=== PATIENT | female | born 1970 | race Caucasian/White ===

== ENCOUNTER 2016-08-09 14:46 | Inpatient (IN) | payer OTHER ==
[2016-08-09] VITALS (9 sets, daily range): BP systolic 100–135; BP diastolic 53–62; PULSE 94–99; RESP 12–18; TEMP 98.1–98.2; O2SAT 96–100
[~2016-08-09] VITALS: Ht 160 cm; Wt 54.5 kg
[~2016-08-09 14:46] MED LIST: PROT40TA PO
[2016-08-09 15:31] LABS: BACTERIA, URINE RARE /hpf; BLOOD, URINE NEG (NEG); COMMENT (UR) CULTURE INDICATED; CULTURE IF INDICATED CULTURE INDICATED; GLUCOSE,URINE NEG (NEG); KETONE, URINE NEG (NEG); MUCUS URINE FEW /lpf (OCC); NITRITE,URINE POS (NEG); PH, URINE 5.5 (5.0-8.5); SQUAMOUS EPITHELIAL CELL URINE 8 /hpf (0-5); URINE COLOR YELLOW (YELLW/STRAW)
[2016-08-09 16:34] LABS: APTT (PATIENT) 30.6 SEC (24.3-30.1); INTERNATIONAL NORMALIZED RATIO 1.1 RATIO; PROTHROMBIN TIME - PATIENT 12.7 SEC (9.8-11.6)
[2016-08-09 16:45] LABS: BICARBONATE 20.4 MEQ/L (21.0-32.0); POTASSIUM 3.5 MEQ/L (3.5-5.1); TOTAL BILIRUBIN ADULT 0.7 MG/DL (0.2-1.0)
[2016-08-09 16:49] LABS: CALCIUM-PROTEIN CORRECTED 7.3 MG/DL (8.5-10.1)
[2016-08-09 17:46] LABS: MEAN CELL VOLUME 62.6 FL (80.0-100.0); MEAN CORPUSCULAR HEMOGLOBIN 17.5 PG (27.0-34.0); PLATELET COUNT 58 TH/MM3 (150-450); RED BLOOD COUNT 1.81 MIL/MM3 (4.00-5.30); RED CELL DISTRIBUTION WIDTH 24.5 % (11.6-17.2); WHITE BLOOD COUNT 2.5 TH/MM3 (4.0-11.0)
[2016-08-09 17:47] LABS: HEMO FLAGS AUTO DIFF
[2016-08-09 17:50] LABS: HEMATOCRIT 11.3 % (35.0-46.0)
--- NOTE | 2016-08-09 17:53 | PD ---
HPI Chief Complaint: Edema Time Seen by Provider: 17:33 Travel History International Travel<30 days: No Contact w/Intl Traveler<30days: No Traveled to known affect area: No History of Present Illness HPI 46yo F with PMH of alcohol abuse, cirrhosis presents to the ED with c/o low hemoglobin and bilateral lower extremity swelling for 4-5 days. Pt states she has had this before, hemoglobin has been in the 3s before and had multiple transfusions. She had the same complaint 3-4 times, once every year. Pt drinks daily and last drink was this morning. Denies any fever, cough, chest pain, sob, hematemesis, abdominal pain, black stool or blood in stool. Had endoscopy and colonoscopy 1 year ago that was negative as per patient. Had history of alcohol withdrawal seizure. PFSH Past Medical History Anemia: Yes Arthritis: Yes Anxiety: Yes Depression: Yes Cancer: No Cardiovascular Problems: No Chemotherapy: No Cerebrovascular Accident: Yes Diminished Hearing: No Endocrine: No Gastrointestinal Disorders: Yes Genitourinary: No Immune Disorder: No Implanted Vascular Access Dvce: No Musculoskeletal: No Neurologic: Yes Psychiatric: Yes Reproductive: Yes (PELVIC MASS) Respiratory: No Migraines: No Radiation Therapy: No Seizures: Yes (X4 IN 3 YEARS) Tetanus Vaccination: < 5 Years Influenza Vaccination: No ?: Not : 1 Para: 1 Miscarriage: 0 : 0 Past Surgical History Abdominal Surgery: Yes (BILAT INGUINAL HERNIA REPAIR) Appendectomy: Yes Cardiac Surgery: No Section: Yes Ear Surgery: No Eye Surgery: No Genitourinary Surgery: Yes (PELVIC MASS) Gynecologic Surgery: Yes (OOPHRECTOMY) Hysterectomy: Yes Oral Surgery: No Thoracic Surgery: No Tonsillectomy: Yes Other Surgery: Yes Social History Alcohol Use: Yes (8-10 BEERS DAILY, LAST DRINK 08/09/16) Tobacco Use: Yes ( APPROX. 1 PPD ) Substance Use: No Allergies-Medications (Allergen,Severity, Reaction): Coded Allergies: No Known Allergies (Unverified , 08/09/16) Reported Meds & Prescriptions Reported Meds & Active Scripts Active No Active Prescriptions or Reported Medications Review of Systems Except as stated in HPI: all other systems reviewed are Neg Physical Exam Narrative GENERAL: 46yo F not in distress. SKIN: Warm and dry. Jaundice. HEAD: Atraumatic. Normocephalic. EYES: Pupils equal and round. + scleral icterus. No injection or drainage. ENT: No nasal bleeding or discharge. Mucous membranes pink and moist. NECK: Trachea midline. No JVD. CARDIOVASCULAR: Regular rate and rhythm. No murmur appreciated. RESPIRATORY: No accessory muscle use. Clear to auscultation. Breath sounds equal bilaterally. GASTROINTESTINAL: Abdomen soft, non-tender, nondistended. No rebound tenderness or guarding. RECTAL: No stool. negative hemaprompt. MUSCULOSKELETAL: No obvious deformities. No clubbing. No cyanosis. +Lower extremity pitting bilateral edema. NEUROLOGICAL: Awake and alert. No obvious cranial nerve deficits. Motor grossly within normal limits. Normal speech. PSYCHIATRIC: Appropriate mood and affect; insight and judgment normal. Data Data Last Documented VS Vital Signs Date Time Temp Pulse Resp B/P Pulse Ox O2 Delivery O2 Flow Rate FiO2 08/09/16 19:10 98.1 99 16 114/53 100 Room Air Orders Urinalysis - C+S If Indicated (08/09/16 14:57) Complete Blood Count With Diff (08/09/16 15:24) Comprehensive Metabolic Panel (08/09/16 15:24) Prothrombin Time / Inr (Pt) (08/09/16 15:24) Act Partial Throm Time (Ptt) (08/09/16 15:24) Type And Screen (08/09/16 15:24) Ammonia (08/09/16 15:24) Urine Culture (08/09/16 14:57) Alcohol (Ethanol) (08/09/16 16:08) Ceftriaxone Inj (Rocephin Inj) (08/09/16 18:00) Red Blood Cells (Rbc) (08/09/16 17:50) Blood Product Administration .UPON TRANSFUSION (08/09/16 17:50) Sodium Chlor 0.9% 250 Ml Inj (Ns 250 Ml (08/09/16 18:00) Calcium Gluconate Inj (Calcium Gluconate (08/09/16 18:30) Nicotine 7 Mg Patch.24 Hr (Habitrol 7 M (08/09/16 19:00) Admit Order (Ed Use Only) (08/09/16 19:23) Labs Laboratory Tests Test 08/09/16 08/09/16 08/09/16 08/09/16 14:57 15:45 17:10 17:50 Urine Color YELLOW Urine Turbidity HAZY Urine pH 5.5 Urine Specific [place] 1.009 Urine Protein TRACE mg/dL Urine Glucose (UA) NEG mg/dL Urine Ketones NEG mg/dL Urine Occult Blood NEG Urine Nitrite POS Urine Bilirubin NEG Urine Urobilinogen 2.0 MG/DL Urine Leukocyte Esterase LARGE Urine RBC 2 /hpf Urine WBC 13 /hpf Urine Squamous Epithelial 8 /hpf Cells Urine Bacteria RARE /hpf Urine Mucus FEW /lpf Microscopic Urinalysis Comment CULTURE INDICATED Prothrombin Time 12.7 SEC Prothromb Time International 1.1 RATIO Ratio Activated Partial 30.6 SEC Thromboplast Time Sodium Level 133 MEQ/L Potassium Level 3.5 MEQ/L Chloride Level 101 MEQ/L Carbon Dioxide Level 20.4 MEQ/L Anion Gap 12 MEQ/L Blood Urea Nitrogen 4 MG/DL Creatinine 0.50 MG/DL Estimat Glomerular Filtration 133 ML/MIN Rate Random Glucose 104 MG/DL Calcium Level 7.3 MG/DL Protein Corrected Calcium 7.3 MG/DL Total Bilirubin 0.7 MG/DL Aspartate Amino Transf 22 U/L (AST/SGOT) Alanine Aminotransferase 15 U/L (ALT/SGPT) Alkaline Phosphatase 73 U/L Ammonia 42 MCMOL/L Total Protein 7.2 GM/DL Albumin 3.1 GM/DL Ethyl Alcohol Level 298 MG/DL Blood Type B POSITIVE B POSITIVE Antibody Screen NEGATIVE White Blood Count 2.5 TH/MM3 Red Blood Count 1.81 MIL/MM3 Hemoglobin 3.2 GM/DL Hematocrit 11.3 % Mean Corpuscular Volume 62.6 FL Mean Corpuscular Hemoglobin 17.5 PG Mean Corpuscular Hemoglobin 28.0 % Concent Red Cell Distribution Width 24.5 % Platelet Count 58 TH/MM3 Mean Platelet Volume 9.5 FL Neutrophils (%) (Auto) % Lymphocytes (%) (Auto) % Monocytes (%) (Auto) % Eosinophils (%) (Auto) % Basophils (%) (Auto) % Neutrophils # (Auto) TH/MM3 Lymphocytes # (Auto) TH/MM3 Monocytes # (Auto) TH/MM3 Eosinophils # (Auto) TH/MM3 Basophils # (Auto) TH/MM3 CBC Comment AUTO DIFF Differential Comment AUTO DIFF CONFIRMED Platelet Estimate LOW Platelet Morphology Comment NORMAL Crossmatch Leukocyte-Reduced Red Blood Cells Blood Bank Comment MDM Medical Decision Making Medical Screen Exam Complete: Yes Emergency Medical Condition: Yes Interpretation(s) Laboratory Tests Test 08/09/16 08/09/16 08/09/16/2/17 14:57 15:45 17:10 17:50 Urine Color YELLOW (YELLW/STRAW) Urine Turbidity HAZY (CLEAR) Urine pH 5.5 (5.0-8.5) Urine Specific [place] 1.009 (1.002-1.035) Urine Protein TRACE mg/dL (NEG-TRACE) Urine Glucose (UA) NEG mg/dL (NEG) Urine Ketones NEG mg/dL (NEG) Urine Occult Blood NEG (NEG) Urine Nitrite POS (NEG) Urine Bilirubin NEG (NEG) Urine Urobilinogen 2.0 MG/DL (LESS THAN 2.0) Urine Leukocyte Esterase LARGE (NEG) Urine RBC 2 /hpf (0-3) Urine WBC 13 /hpf (0-5) Urine Squamous Epithelial 8 /hpf (0-5) Cells Urine Bacteria RARE /hpf (NONE) Urine Mucus FEW /lpf (OCC) Microscopic Urinalysis Comment CULTURE INDICATED Prothrombin Time 12.7 SEC (9.8-11.6) Prothromb Time International 1.1 RATIO Ratio Activated Partial 30.6 SEC Thromboplast Time (24.3-30.1) Sodium Level 133 MEQ/L (136-145) Potassium Level 3.5 MEQ/L (3.5-5.1) Chloride Level 101 MEQ/L (98-107) Carbon Dioxide Level 20.4 MEQ/L (21.0-32.0) Anion Gap 12 MEQ/L (5-15) Blood Urea Nitrogen 4 MG/DL (7-18) Creatinine 0.50 MG/DL (0.50-1.00) Estimat Glomerular Filtration 133 ML/MIN Rate (>89) Random Glucose 104 MG/DL (74-106) Calcium Level 7.3 MG/DL (8.5-10.1) Protein Corrected Calcium 7.3 MG/DL (8.5-10.1) Total Bilirubin 0.7 MG/DL (0.2-1.0) Aspartate Amino Transf 22 U/L (15-37) (AST/SGOT) Alanine Aminotransferase 15 U/L (10-53) (ALT/SGPT) Alkaline Phosphatase 73 U/L (45-117) Ammonia 42 MCMOL/L (11-32) Total Protein 7.2 GM/DL (6.4-8.2) Albumin 3.1 GM/DL (3.4-5.0) Ethyl Alcohol Level 298 MG/DL (0-5) Blood Type B POSITIVE B POSITIVE Antibody Screen NEGATIVE White Blood Count 2.5 TH/MM3 (4.0-11.0) Red Blood Count 1.81 MIL/MM3 (4.00-5.30) Hemoglobin 3.2 GM/DL (11.6-15.3) Hematocrit 11.3 % (35.0-46.0) Mean Corpuscular Volume 62.6 FL (80.0-100.0) Mean Corpuscular Hemoglobin 17.5 PG (27.0-34.0) Mean Corpuscular Hemoglobin 28.0 % Concent (32.0-36.0) Red Cell Distribution Width 24.5 % (11.6-17.2) Platelet Count 58 TH/MM3 (150-450) Mean Platelet Volume 9.5 FL (7.0-11.0) Neutrophils (%) (Auto) % (16.0-70.0) Lymphocytes (%) (Auto) % (9.0-44.0) Monocytes (%) (Auto) % (0.0-8.0) Eosinophils (%) (Auto) % (0.0-4.0) Basophils (%) (Auto) % (0.0-2.0) Neutrophils # (Auto) TH/MM3 (1.8-7.7) Lymphocytes # (Auto) TH/MM3 (1.0-4.8) Monocytes # (Auto) TH/MM3 (0-0.9) Eosinophils # (Auto) TH/MM3 (0-0.4) Basophils # (Auto) TH/MM3 (0-0.2) CBC Comment AUTO DIFF Differential Comment AUTO DIFF CONFIRMED Platelet Estimate LOW (NORMAL) Platelet Morphology Comment NORMAL (NORMAL) Crossmatch Leukocyte-Reduced Red Blood Cells Blood Bank Comment Differential Diagnosis Lower extremity edema secondary to cirrhosis vs. GI bleed Narrative Course 46yo F with hemoglobin of 3.2 today. Pt is hemodynamically stable. BP 116/60. HR 96. Saturating at 100% RA. Calcium low, replaced with calcium gluconate. Ammonia 42. UA positive nitrite, ceftriaxone 1gm IV given. Stat 2 units of PRBC ordered and transfused in the ED. Pt has no abdominal complaints, denies hematemesis or melena. No stool on rectal exam and it was hemaprompt negative. States similar in the past. Discussed with hospitalist Dr. Atkinson and accepted for admission. HemaPrompt Point of Care Internal Pos. & Neg. Controls: Passed Fecal Specimen Occult Blood: Negative Diagnosis Primary Impression: Symptomatic anemia Admitting Information Admitting Physician Requests: Admit Scripts No Active Prescriptions or Reported Meds Nadeen Harrell DO Aug 09, 2016 17:53
[2016-08-09] MEDS ORDERED: cefTRIAXone INJ 1,000 MG in SODIUM CHLORIDE 0.9% INJ 100 ML IV ONE (18:00)
[2016-08-09] MEDS ORDERED: SODIUM CHLOR 0.9% 250 ML INJ 250 ML IV ONE (18:00)
[2016-08-09 18:25] LABS: PLATELET ESTIMATE SMEAR LOW (NORMAL); PLATELET MORPHOLOGY NORMAL (NORMAL); SCAN/DIFF AUTO DIFF CONFIRMED
[2016-08-09] MEDS ORDERED: CALCIUM GLUCONATE INJ 1 GM in DEXTROSE 5% IN WATER 100ML INJ 100 ML IV ONE ×2 (18:30)
[2016-08-09] MEDS ORDERED: NICOTINE 7 MG/24 HR PATCH TD ONE (19:00)
[2016-08-09] MEDS ORDERED: SODIUM CHLORIDE 0.9% FLUSH 5 ML FLUSH IV FLUSH PRN (20:15)
[2016-08-09] MEDS ORDERED: LORazepam 1 MG TAB PO PRN (20:15)
[2016-08-09] MEDS ORDERED: FLUMAZENIL 1 MG/10 ML VIAL IV PUSH PRN (20:15)
[2016-08-09] MEDS ORDERED: LORazepam 2 MG/ML VIAL IV PUSH PRN ×4 (20:15)
[2016-08-09] MEDS ORDERED: SODIUM CHLORIDE 0.9% FLUSH 5 ML FLUSH FLUSH PRN (20:15)
[2016-08-09] MEDS ORDERED: NALOXONE HCL 0.4 MG/ML AMP IV PRN (20:15)
[2016-08-09] MEDS ORDERED: LORazepam 2 MG TAB PO PRN (20:15)
[2016-08-09] MEDS ORDERED: ONDANSETRON HCL 4 MG/2 ML VIAL IVP PRN (20:15)
[2016-08-09] MEDS: SODIUM CHLORIDE 0.9% FLUSH 5 ML FLUSH IV FLUSH SCH (21:00)
[2016-08-09] MEDS ORDERED: SODIUM CHLORIDE 0.9% FLUSH 5 ML FLUSH FLUSH SCH (21:00)
[2016-08-10] VITALS (14 sets, daily range): BP systolic 109–140; BP diastolic 57–69; PULSE 71–98; RESP 18–22; TEMP 98.3–100.8; O2SAT 94–99
--- NOTE | 2016-08-10 02:14 | HHI.HP ---
[facility] Service [facility] Primary Care Physician No Primary Care Physician Admission Diagnosis Symptomatic anemia Diagnoses: Chief Complaint: leg swelling Travel History International Travel<30 Days: No Contact w/Intl Traveler <30 Da: No Traveled to Known Affected Are: No History of Present Illness History from patient, ER physician notes, and review of medical records. Patient reported that she came to the hospital because her legs have been extremely painful and swelling. She reports that her right lower extremity is bigger than the left. He states that she has not been walking around at home at all because of her chronic shortness of breath which is worsening. She denies any chest pains or syncopal episodes. Denies any melena/hematemesis/hematochezia/hematuria. In the emergency room, patient's workup revealed hemoglobin of 3.2. She reports of chronic anemia. She states that she has had EGDs and colonoscopies done about a year ago. She states the doctors could not find the cause. However on review of medical records, she did have EGD and colonoscopy done here. Her EGD revealed liver cirrhosis with portal gastropathy and esophagitis. Colonoscopy was negative. Patient was started on blood transfusion in emergency room. She was receiving her second unit of blood at the time of my exam. To me, patient denies chest pain/dizziness/syncopal episodes. However she does state that she have pain mostly home bound because of severe pains in her lower extremities and shortness of breath and fatigued. Review of Systems Constitutional: COMPLAINS OF: Weight loss, DENIES: Fatigue, Fever, Weight gain , Chills, Dizziness, Change in appetite Endocrine: DENIES: Abnorml menstrual pattern, Heat/cold intolerance, Polydipsia , Polyuria, Polyphagia Eyes: DENIES: Blurred vision, Diplopia, Eye inflammation, Eye pain, Vision loss , Photosensitivity, Double Vision Ears, nose, mouth, throat: DENIES: Tinnitus, Hearing loss, Vertigo, Nasal discharge, Oral lesions, Throat pain, Hoarseness, Ear Pain, Running Nose, Epistaxis, Sinus Pain, Toothache, Odynophagia Respiratory: COMPLAINS OF: Apneas, DENIES: Cough, Snoring, Hemoptysis, Sputum production, Shortness of breath Cardiovascular: DENIES: Chest pain, Palpitations, Syncope, Dyspnea on Exertion , PND, Lower Extremity Edema Gastrointestinal: COMPLAINS OF: Anorexia, DENIES: Abdominal pain, Black stools , Bloody stools, Constipation, Diarrhea, Nausea, Vomiting Genitourinary: COMPLAINS OF: Dyspareunia, Urgency, DENIES: Sexual dysfunction , Urinary incontinence, Hematuria, Dysuria, Nocturia Musculoskeletal: COMPLAINS OF: Joint pain Neurologic: COMPLAINS OF: Abnormal gait, Seizures, Poor Balance, DENIES: Headache, Localized weakness, Paresthesias, Tremor Past Family Social History Past Medical History Chronic anemia Pica syndrome Portal gastropathy Liver cirrhosis COPD History of GI bleed History of delirium tremens and seizures Past Surgical History Cholecystectomy cholecystectomy Reported Medications None apart from [id number] iron pills Allergies: Coded Allergies: No Known Allergies (Unverified , 08/09/16) Family History Denies any family history of any acute medical issues. Social History Smokes at least a pack a day. Drinks alcohol 4 beers a day. Denies any drug abuse. Physical Exam Vital Signs Vital Signs Date Time Temp Pulse Resp B/P Pulse Ox O2 Delivery O2 Flow Rate FiO2 08/10/16 00:00 98.3 98 18 109/57 98 08/10/16 00:00 98.3 98 18 109/57 98 08/09/16 23:41 98.1 98 18 105/57 98 08/09/16 21:09 94 16 135/62 99 Room Air 08/09/16 21:08 98.2 99 16 135/62 99 Room Air 08/09/16 21:00 100 08/09/16 20:10 98.1 95 16 113/55 100 Room Air 08/09/16 19:10 98.1 99 16 114/53 100 Room Air 08/09/16 18:55 98.1 98 16 107/55 100 Room Air 08/09/16 18:55 98 16 107/55 100 Room Air 08/09/16 17:10 96 16 107/55 96 Room Air 08/09/16 17:10 95 16 100 Room Air 08/09/16 14:47 98.1 99 12 100/57 98 Room Air Physical Exam GENERAL: This is a well-nourished, well-developed patient, in no apparent distress. SKIN: No rashes, ecchymoses or lesions. Cool and dry. HEAD: Atraumatic. Normocephalic. No temporal or scalp tenderness. EYES: No scleral icterus. No injection or drainage. ENT: Nose without bleeding, purulent drainage or septal hematoma Airway patent. NECK: Trachea midline. No JVDSupple, nontender, no meningeal signs. CARDIOVASCULAR: Regular rate and rhythm without murmurs, gallops, or rubs. RESPIRATORY: Clear to auscultation. Breath sounds equal bilaterally. No wheezes , rales, or rhonchi. GASTROINTESTINAL: Abdomen soft, non-tender, nondistended. No hepato-splenomegaly , or palpable masses. No guarding. MUSCULOSKELETAL: Extremities without clubbing, cyanosis, or edema. No calf tenderness NEUROLOGICAL: Awake and alert. Motor and sensory grossly within normal limits. Normal speech. Laboratory Laboratory Tests Test 08/09/16 08/09/16 08/09/16 08/09/16 14:57 15:45 17:10 17:50 Urine Color YELLOW Urine Turbidity HAZY Urine pH 5.5 Urine Specific [place] 1.009 Urine Protein TRACE Urine Glucose (UA) NEG Urine Ketones NEG Urine Occult Blood NEG Urine Nitrite POS Urine Bilirubin NEG Urine Urobilinogen 2.0 Urine Leukocyte Esterase LARGE Urine RBC 2 Urine WBC 13 Urine Squamous Epithelial 8 Cells Urine Bacteria RARE Urine Mucus FEW Microscopic Urinalysis Comment CULTURE INDICATED Prothrombin Time 12.7 Prothromb Time International 1.1 Ratio Activated Partial 30.6 Thromboplast Time Sodium Level 133 Potassium Level 3.5 Chloride Level 101 Carbon Dioxide Level 20.4 Anion Gap 12 Blood Urea Nitrogen 4 Creatinine 0.50 Estimat Glomerular Filtration 133 Rate Random Glucose 104 Calcium Level 7.3 Protein Corrected Calcium 7.3 Total Bilirubin 0.7 Aspartate Amino Transf 22 (AST/SGOT) Alanine Aminotransferase 15 (ALT/SGPT) Alkaline Phosphatase 73 Ammonia 42 Total Protein 7.2 Albumin 3.1 Ethyl Alcohol Level 298 Blood Type B POSITIVE B POSITIVE Antibody Screen NEGATIVE White Blood Count 2.5 Red Blood Count 1.81 Hemoglobin 3.2 Hematocrit 11.3 Mean Corpuscular Volume 62.6 Mean Corpuscular Hemoglobin 17.5 Mean Corpuscular Hemoglobin 28.0 Concent Red Cell Distribution Width 24.5 Platelet Count 58 Mean Platelet Volume 9.5 Neutrophils (%) (Auto) Lymphocytes (%) (Auto) Monocytes (%) (Auto) Eosinophils (%) (Auto) Basophils (%) (Auto) Neutrophils # (Auto) Lymphocytes # (Auto) Monocytes # (Auto) Eosinophils # (Auto) Basophils # (Auto) CBC Comment AUTO DIFF Differential Comment AUTO DIFF CONFIRMED Platelet Estimate LOW Platelet Morphology Comment NORMAL Crossmatch Leukocyte-Reduced Red Blood Cells Blood Bank Comment Date/Time Procedure Status Source Growth 08/09/16 14:57 Urine Culture Received Urine Clean Catch Pending Result Diagram: 08/09/16 1710 08/09/16 1545 Assessment and Plan Problem List: (1) GI bleed ICD Code: K92.2 Status: Acute (2) Anemia due to acute blood loss ICD Code: D62 Status: Acute Assessment and Plan Impression: Right lower extremity asymmetric swelling and painrule out DVT Symptomatic anemia Liver cirrhosis Plan: Stat Doppler ultrasound of lower extremities to rule out DVT. Patient was started on blood transfusion in ER. She is receiving her second unit of PRBC. . Hemoglobin hematocrit this early a.m. She will need to see him continue to replacement. Repeat blood sugar. Monitor fingersticks measurements. Units in Saturdays reviewed. No evidence of acute intracranial pathology. Liver cirrhosis. Portal hypertension. Resume home meds. Transfuse additional 2 more units. GI consult. Start on Protonix IV drip. DVT prophylaxison SCD if DVT studies are negative. GI prophylaxis on pantoprazole. Discussed Condition With Patient's, ER physician, patient's nurse Physician Certification 2 Midnight Certification Type: Admission for Inpatient Services Order for Inpatient Services The services are ordered in accordance with Medicare regulations or non- Medicare payer requirements, as applicable. In the case of services not specified as inpatient-only, they are appropriately provided as inpatient services in accordance with the 2-midnight benchmark. Estimated LOS (days): 3 days is the estimated time the patient will need to remain in the hospital, assuming treatment plan goals are met and no additional complications. Post-Hospital Plan: Home Percy Atkinson MD Aug 10, 2016 02:14
[2016-08-10] MEDS ORDERED: PANTOPRAZOLE SODIUM 40 MG VIAL IV PUSH SCH (02:15)
--- NOTE | 2016-08-10 03:27 | RADRPT ---
EXAM DATE/TIME: 08/10/2016 02:46 [facility] COMPARISON: US LEG BILATERAL VENOUS DOPPLER, April 17, 2014, 17:48. INDICATIONS : Bilateral leg pain. MEDICAL HISTORY : Seizures. Cirrhosis. Anemia. SURGICAL HISTORY : Tonsillectomy.Hysterectomy. Appendectomy.Inguinal hernia repair. Oophorectomy. ENCOUNTER: Subsequent ACUITY: 1 week PAIN SCORE: 5/10 LOCATION: Bilateral legs. TECHNIQUE: Venous ultrasound of the left and right leg was performed from the inguinal ligament to the proximal calf. Real-time, color Doppler and spectral tracing, compression and augmentation techniques were us ed. FINDINGS: RIGHT LEG: There is normal compressibility of the deep venous system from the inguinal region to the proximal ca lf. No echogenic clot is seen in the lumen of the common femoral, femoral, popliteal, and posterior tibial veins. There is a normal response of the venous system to proximal and distal augmentation an d respiration. LEFT LEG: There is normal compressibility of the deep venous system from the inguinal region to the proximal ca lf. No echogenic clot is seen in the lumen of the common femoral, femoral, popliteal, and posterior tibial veins. There is a normal response of the venous system to proximal and distal augmentation an d respiration. CONCLUSION: No DVT. Subcutaneous edema noted throughout both lower extremities.. Carson Prieto Jr., MD on August 10, 2016 at 3:25 Board Certified Radiologist. This report was verified electronically.
[2016-08-10] MEDS ORDERED: PANTOPRAZOLE INJ 80 MG in SODIUM CHLORIDE 0.9% INJ 35 ML IV ONE (03:30)
[2016-08-10] MEDS: PANTOPRAZOLE INJ 80 MG in SODIUM CHLORIDE 0.9% INJ 100 ML IV SCH ×2 (04:45→16:20)
[2016-08-10] MEDS: SODIUM CHLORIDE 0.9% FLUSH 5 ML FLUSH IV FLUSH SCH ×2 (10:43→20:39)
[2016-08-10] MEDS: chlordiazePOXIDE 25 MG CAP PO SCH ×3 (10:43→18:28)
--- NOTE | 2016-08-10 12:53 | PD.CONS ---
HPI History of Present Illness This is a 46 year old female patient who came to the emergency room for evaluation of bilateral lower extremity swelling for the past 4-5 days. She was found to have severe anemia with an H&H of 3.2/11.3. She denies any shortness of breath or chest pain. She denies any obvious blood loss. She denies any GI symptoms such as nausea, vomiting, decreased appetite, weight loss , abdominal pain, reflux, heartburn, bowel changes, constipation, diarrhea, melena, or hematochezia. She has a history of liver cirrhosis diagnosed about a year ago. She continues to drink alcohol, 7-8 beers per day. She does not take any NSAIDs. She was evaluated with an EGD (04/14/15) and this revealed portal gastropathy, esophagitis. Colonoscopy (04/14/15) revealed hemorrhoids. Discussed with patient further evaluation with EGD/colonoscopy- rationale, procedure, risks and benefits of both proceeding and not having this done and she is adamantly refusing. She states that she absolutely does not wish to do this and would like a diet ordered. (Lady Walker) PFSH Past Medical History Chronic anemia Portal gastropathy Liver cirrhosis Esophagitis COPD History of GI bleed History of delirium tremens and seizures Past Surgical History Cholecystectomy Appendectomy Bilateral inguinal hernia repair EGD Colonoscopy (Lady Walker) Coded Allergies: No Known Allergies (Unverified , 08/09/16) Medications Allergies Coded Allergies Type Severity Reaction Last Updated Verified No Known Allergies 08/09/16 No Active Scripts Medications Dose Route/Sig Days Date Category No Active Prescriptions or Reported Medications Rx Family History Denies any family history of anemia, esophageal, gastric, or colorectal cancer Social History Smokes at least a pack a day. Drinks alcohol 7-8 beers a day. Denies any drug abuse. (Lady Walker) Review of Systems Constitutional: DENIES: Fatigue, Weight loss, Dizziness Respiratory: DENIES: Shortness of breath Cardiovascular: COMPLAINS OF: Lower Extremity Edema, DENIES: Chest pain Gastrointestinal: DENIES: Abdominal pain, Black stools, Bloody stools, Constipation, Diarrhea, Nausea, Vomiting, Anorexia, Swelling of Abdomen, Heartburn, Hematemesis Musculoskeletal: DENIES: Joint pain, Muscle aches Integumentary: DENIES: Rash Neurologic: DENIES: Headache Psychiatric: DENIES: Confusion (Lady Walker) GI Exam Vitals I&O Vital Signs Date Time Temp Pulse Resp B/P Pulse Ox O2 Delivery O2 Flow Rate FiO2 08/10/16 11:45 99.4 76 18 133/66 97 08/10/16 11:30 99.8 75 18 139/63 97 08/10/16 08:00 99.8 84 20 123/64 97 08/10/16 06:10 99.0 86 20 125/65 97 08/10/16 05:42 99.0 92 20 120/57 97 08/10/16 03:30 98.3 88 18 126/68 99 08/10/16 03:29 98.3 88 18 126/68 99 08/10/16 00:00 98.3 98 18 109/57 98 08/10/16 00:00 98.3 98 18 109/57 98 08/09/16 23:41 98.1 98 18 105/57 98 08/09/16 21:09 94 16 135/62 99 Room Air 08/09/16 21:08 98.2 99 16 135/62 99 Room Air 08/09/16 21:00 100 08/09/16 20:10 98.1 95 16 113/55 100 Room Air 08/09/16 19:10 98.1 99 16 114/53 100 Room Air 08/09/16 18:55 98.1 98 16 107/55 100 Room Air 08/09/16 18:55 98 16 107/55 100 Room Air 08/09/16 17:10 96 16 107/55 96 Room Air 08/09/16 17:10 95 16 100 Room Air 08/09/16 14:47 98.1 99 12 100/57 98 Room Air Imaging Last Impressions Lower Extremity Ultrasound 08/10/16 0000 Signed Impressions: Service Date/Time: Wednesday, August 10, 2016 02:46 - CONCLUSION: No DVT. Subcutaneous edema noted throughout both lower extremities.. Carson Prieto Jr., MD Laboratory Test 08/09/16 08/09/16 08/09/16 08/09/16 14:57 15:45 17:10 17:50 Urine Color YELLOW Urine Turbidity HAZY Urine pH 5.5 Urine Specific Paul 1.009 Urine Protein TRACE mg/dL Urine Glucose (UA) NEG mg/dL Urine Ketones NEG mg/dL Urine Occult Blood NEG Urine Nitrite POS Urine Bilirubin NEG Urine Urobilinogen 2.0 MG/DL Urine Leukocyte Esterase LARGE Urine RBC 2 /hpf Urine WBC 13 /hpf Urine Squamous Epithelial 8 /hpf Cells Urine Bacteria RARE /hpf Urine Mucus FEW /lpf Microscopic Urinalysis Comment CULTURE INDICATED Prothrombin Time 12.7 SEC Prothromb Time International 1.1 RATIO Ratio Activated Partial 30.6 SEC Thromboplast Time Sodium Level 133 MEQ/L Potassium Level 3.5 MEQ/L Chloride Level 101 MEQ/L Carbon Dioxide Level 20.4 MEQ/L Anion Gap 12 MEQ/L Blood Urea Nitrogen 4 MG/DL Creatinine 0.50 MG/DL Estimat Glomerular Filtration 133 ML/MIN Rate Random Glucose 104 MG/DL Calcium Level 7.3 MG/DL Protein Corrected Calcium 7.3 MG/DL Total Bilirubin 0.7 MG/DL Aspartate Amino Transf 22 U/L (AST/SGOT) Alanine Aminotransferase 15 U/L (ALT/SGPT) Alkaline Phosphatase 73 U/L Ammonia 42 MCMOL/L Total Protein 7.2 GM/DL Albumin 3.1 GM/DL Ethyl Alcohol Level 298 MG/DL Blood Type B POSITIVE B POSITIVE Antibody Screen NEGATIVE White Blood Count 2.5 TH/MM3 Red Blood Count 1.81 MIL/MM3 Hemoglobin 3.2 GM/DL Hematocrit 11.3 % Mean Corpuscular Volume 62.6 FL Mean Corpuscular Hemoglobin 17.5 PG Mean Corpuscular Hemoglobin 28.0 % Concent Red Cell Distribution Width 24.5 % Platelet Count 58 TH/MM3 Mean Platelet Volume 9.5 FL Neutrophils (%) (Auto) % Lymphocytes (%) (Auto) % Monocytes (%) (Auto) % Eosinophils (%) (Auto) % Basophils (%) (Auto) % Neutrophils # (Auto) TH/MM3 Lymphocytes # (Auto) TH/MM3 Monocytes # (Auto) TH/MM3 Eosinophils # (Auto) TH/MM3 Basophils # (Auto) TH/MM3 CBC Comment AUTO DIFF Differential Comment AUTO DIFF CONFIRMED Platelet Estimate LOW Platelet Morphology Comment NORMAL Crossmatch Leukocyte-Reduced Red Blood Cells Blood Bank Comment Test 08/10/16 04:48 Blood Type B POSITIVE Crossmatch Leukocyte-Reduced Red Blood Cells Blood Bank Comment Date/Time Procedure Status Source Growth 08/09/16 14:57 Urine Culture - Preliminary Resulted Urine Clean Catch Gram Negative Brodie Physical Examination HEENT: Normocephalic; atraumatic; no jaundice. Throat is clear. NECK: Neck is supple, no JVD, no lymphadenopathy. CHEST: CTA CARDIAC: RRR ABDOMEN: Soft, nondistended, nontender; hepatosplenomegaly; bowel sounds are present in all four quadrants. EXTREMITIES: No clubbing, cyanosis, or edema. SKIN: Normal; no rash; no jaundice. MEAT STOCK CLERK: No focal deficits; alert and oriented times three. (Lady Walker) Assessment and Plan Plan ASSESSMENT: - Severe anemia with H/H of 3.2/11.3 on admission. She has been asymptomatic other than ble edema- even denying chest pain, shortness of breath and fatigue. Denies any GI symptoms such as nausea, vomiting, decreased appetite, weight loss, abdominal pain, reflux, heartburn, bowel changes, constipation, diarrhea, melena, or hematochezia. No NSAIDs. Does have cirrhosis and drinks 7-8 beers per day. EGD (04/14/15)--> portal gastropathy, esophagitis. Colonoscopy (04/14/15)----> hemorrhoids. Discussed with patient further evaluation with EGD/colonoscopy- rationale, procedure, risks and benefits of both proceeding and not having this done and she is adamantly refusing. She states that she absolutely does not wish to do this and would like a diet ordered. - Liver cirrhosis. Dx one year ago. Continues to drink 7-8 beers per day. - Coagulopathy, mild. - Pancytopenia secondary to liver cirrhosis PLAN: - Refuses EGD/Colonoscopy - Heart healthy diet - CT abdomen and pelvis with iv contrast - Monitor labs - Agree with transfusion - PPI - Needs complete ETOH cessation - Supportive care - Further recommendations to follow based on results of above - Pt seen and examined by Dr. Workman and myself and this note is written on his behalf (Lady Walker) Physician Comments Patient was seen and examined, agree with above note. we will check labs, refusing colon EGD, continue supportive care. (Clif Workman MD) Lady Walker Aug 10, 2016 12:53 Clif Workman MD Aug 10, 2016 21:54
[2016-08-10] MEDS ORDERED: DIATRIZOATE MEGLUM/DIATRIZOATE SOD 9 ML CUP PO ONE (14:00)
[2016-08-10 17:06] LABS: AUTOMATED NEUTROPHIL # 1.5 TH/MM3 (1.8-7.7); BASOPHIL % 0.6 % (0.0-2.0); EOSINOPHIL % 0.6 % (0.0-4.0); LYMPH % 31.4 % (9.0-44.0); LYMPHOCYTE # 0.9 TH/MM3 (1.0-4.8); MEAN CELL VOLUME 75.4 FL (80.0-100.0); MEAN CORPUSCULAR HEMOGLOBIN 24.6 PG (27.0-34.0); MEAN CORPUSCULAR HGB CONC 32.6 % (32.0-36.0); MONO % 12.3 % (0.0-8.0); NEUT % 55.1 % (16.0-70.0); PLATELET COUNT 41 TH/MM3 (150-450); RED BLOOD COUNT 3.32 MIL/MM3 (4.00-5.30); WHITE BLOOD COUNT 2.8 TH/MM3 (4.0-11.0)
[2016-08-10 17:08] LABS: HEMO FLAGS AUTO DIFF
[2016-08-10 17:32] LABS: OVALOCYTES 1+ (NORMAL); PLATELET ESTIMATE SMEAR LOW (NORMAL); PLATELET MORPHOLOGY NORMAL (NORMAL); SCAN/DIFF AUTO DIFF CONFIRMED
[2016-08-10 17:34] LABS: BICARBONATE 20.8 MEQ/L (21.0-32.0); POTASSIUM 3.5 MEQ/L (3.5-5.1)
[2016-08-11] VITALS: BP 126/65; PULSE 78; RESP 18; TEMP 98.4; O2SAT 97
[2016-08-11] MEDS: PANTOPRAZOLE INJ 80 MG in SODIUM CHLORIDE 0.9% INJ 100 ML IV SCH (02:49)
[2016-08-11 04:00] VITALS: BP 130/60; PULSE 74; RESP 16; TEMP 98.6; O2SAT 95
[2016-08-11 05:22] LABS: AUTOMATED NEUTROPHIL # 1.5 TH/MM3 (1.8-7.7); BASOPHIL % 0.6 % (0.0-2.0); EOSINOPHIL % 1.6 % (0.0-4.0); HEMATOCRIT 24.6 % (35.0-46.0); LYMPH % 31.4 % (9.0-44.0); LYMPHOCYTE # 0.8 TH/MM3 (1.0-4.8); MEAN CELL VOLUME 73.6 FL (80.0-100.0); MEAN CORPUSCULAR HEMOGLOBIN 24.2 PG (27.0-34.0); MEAN CORPUSCULAR HGB CONC 32.9 % (32.0-36.0); MONO % 11.4 % (0.0-8.0); PLATELET COUNT 30 TH/MM3 (150-450); RED BLOOD COUNT 3.35 MIL/MM3 (4.00-5.30); RED CELL DISTRIBUTION WIDTH 25.5 % (11.6-17.2); WHITE BLOOD COUNT 2.7 TH/MM3 (4.0-11.0)
[2016-08-11 05:26] LABS: HEMO FLAGS AUTO DIFF
[2016-08-11 08:00] VITALS: BP 129/64; PULSE 84; RESP 20; TEMP 99; O2SAT 96
[2016-08-11 08:03] LABS: SCAN/DIFF AUTO DIFF CONFIRMED
[2016-08-11] MEDS: chlordiazePOXIDE 25 MG CAP PO SCH (09:00)
[2016-08-11 09:42] VITALS: O2SAT 98
[2016-08-11 12:00] VITALS: BP 125/69; PULSE 75; RESP 20; TEMP 98.1; O2SAT 95
--- NOTE | 2016-08-11 13:58 | HHI.GIFU ---
Subjective Remarks Sitting up on side of bed. No obvious active bleeding. Refusing egd, colonoscopy, and CT scan- states "I just don't think it is necessary." Attempted to again explain the rationale, but she still refuses. (Lady Walker) Objective Vitals I&O Vital Signs Date Time Temp Pulse Resp B/P Pulse Ox O2 Delivery O2 Flow Rate FiO2 08/11/16 12:00 98.1 75 20 125/69 95 08/11/16 08:00 99.0 84 20 129/64 96 08/11/16 04:00 98.6 74 16 130/60 95 08/11/16 00:00 98.4 78 18 126/65 97 08/10/16 20:00 98.9 78 18 128/69 96 08/10/16 20:00 80 08/10/16 17:52 94 Nasal Cannula 2.00 08/10/16 17:51 94 21 08/10/16 16:00 99.1 71 18 140/65 98 I/O 08/10/16 08/10/16 08/10/16 08/11/16 08/11/16 08/11/16 07:00 15:00 23:00 07:00 15:00 23:00 Intake Total 487 ml 350 ml Output Total 150 ml Balance 337 ml 350 ml Intake Oral 240 ml 280 ml IV Total 247 ml 70 ml Output Urine Total 150 ml # Voids 3 2 # Bowel Movements 1 Laboratory Laboratory Tests Test 08/10/16 08/10/16 08/11/16 16:21 16:28 03:56 Sodium Level 136 Potassium Level 3.5 Chloride Level 107 Carbon Dioxide Level 20.8 Anion Gap 8 Blood Urea Nitrogen 5 Creatinine 0.40 Estimat Glomerular Filtration 172 Rate Random Glucose 88 Calcium Level 7.6 White Blood Count 2.8 2.7 Red Blood Count 3.32 3.35 Hemoglobin 8.2 8.1 Hematocrit 25.0 24.6 Mean Corpuscular Volume 75.4 73.6 Mean Corpuscular Hemoglobin 24.6 24.2 Mean Corpuscular Hemoglobin 32.6 32.9 Concent Red Cell Distribution Width 25.0 25.5 Platelet Count 41 30 Mean Platelet Volume 9.1 9.1 Neutrophils (%) (Auto) 55.1 55.0 Lymphocytes (%) (Auto) 31.4 31.4 Monocytes (%) (Auto) 12.3 11.4 Eosinophils (%) (Auto) 0.6 1.6 Basophils (%) (Auto) 0.6 0.6 Neutrophils # (Auto) 1.5 1.5 Lymphocytes # (Auto) 0.9 0.8 Monocytes # (Auto) 0.3 0.3 Eosinophils # (Auto) 0.0 0.0 Basophils # (Auto) 0.0 0.0 CBC Comment AUTO DIFF AUTO DIFF Differential Comment AUTO DIFF AUTO DIFF CONFIRMED CONFIRMED Platelet Estimate LOW Platelet Morphology Comment NORMAL Ovalocytes 1+ Date/Time Procedure Status Source Growth 08/09/16 14:57 Urine Culture - Final Complete Urine Clean Catch Escherichia Coli Imaging Last Impressions Lower Extremity Ultrasound 08/10/16 0000 Signed Impressions: Service Date/Time: Wednesday, August 10, 2016 02:46 - CONCLUSION: No DVT. Subcutaneous edema noted throughout both lower extremities.. Carson Prieto Jr., MD Physical Exam HEENT: Normocephalic; atraumatic; no jaundice. CHEST: CTA CARDIAC: RRR ABDOMEN: Soft, nondistended, nontender; no hepatosplenomegaly; bowel sounds are present in all four quadrants. EXTREMITIES: No clubbing, cyanosis, or edema. SKIN: Normal; no rash; no jaundice. CELL TECHNICIAN: No focal deficits; alert and oriented times three. (Lady Walker) Assessment and Plan Plan ASSESSMENT: - Severe anemia with H/H of 3.2/11.3 on admission. She has been asymptomatic other than ble edema- even denying chest pain, shortness of breath and fatigue. Denies any GI symptoms such as nausea, vomiting, decreased appetite, weight loss, abdominal pain, reflux, heartburn, bowel changes, constipation, diarrhea, melena, or hematochezia. No NSAIDs. Does have cirrhosis and drinks 7-8 beers per day. EGD (04/14/15)--> portal gastropathy, esophagitis. Colonoscopy (04/14/15)----> hemorrhoids. Discussed with patient further evaluation with EGD/colonoscopy/CT- rationale, procedure, risks and benefits of both proceeding and not having this done and she is still adamantly refusing. S/P 4 units of PRBC. HH 8.1/24.6. - Liver cirrhosis. Dx one year ago. Continues to drink 7-8 beers per day. - Coagulopathy, mild. - Pancytopenia secondary to liver cirrhosis PLAN: - Refuses EGD/Colonoscopy/CT Scan - PPI - Needs complete ETOH cessation - Pt is refusing all workup, GI will sign off, please reconsult as needed - Pt seen and examined by Dr. Workman and myself and this note is written on his behalf (Lady Walker) Physician Comments patient was seen and examined, agree with above note, patient refusing w/u, need to be off ETOH completely. please call us if patient changes her mind. ( Clif Workman MD) Lady Walker Aug 11, 2016 13:58 Clif Workman MD Aug 11, 2016 17:52
[2016-08-11 16:00] VITALS: BP 122/72; PULSE 77; RESP 22; TEMP 99.7; O2SAT 97
[2016-08-11] MEDS ORDERED: CIPR250T2 PO (17:37)
[2016-08-11] MEDS ORDERED: FERR325T PO (17:37)
--- NOTE | 2016-08-11 17:37 | HHI.DCPOC ---
Discharge Care Plan Diagnosis: (1) Symptomatic anemia (2) UTI (urinary tract infection) Goals to Promote Your Health * To prevent worsening of your condition and complications * To maintain your health at the optimal level Directions to Meet Your Goals Take your medications as prescribed Follow your dietary instruction Follow activity as directed Keep your appointments as scheduled Take your immunizations and boosters as scheduled If your symptoms worsen call your PCP, if no PCP go to Urgent Care Center or Emergency Room Smoking is Dangerous to Your Health. Avoid second hand smoke Call the 24-hour hour crisis hotline for domestic abuse at Ashley Ríos PA-C Aug 11, 2016 17:37
--- NOTE | 2016-08-11 18:00 | HHI.PR ---
Subjective Remarks Follow-up for severe anemia and lower extremity edema. RN reports the patient has been stating she wants to leave all day. Upon arrival to the room, the patient is very anxious to be discharged. She continues to refuse any further workup for her anemia including no EGD/colonoscopy/imaging. Lower extremity edema much improved. Urine culture growing Escherichia coli, patient denies any dysuria, increased urinary frequency/urgency. Denies fevers or chills. Attempted to discharge the patient per her request however RN reports the patient could barely walk, very ataxic. Holding off on discharge until PT eval. Objective Vitals Vital Signs Date Time Temp Pulse Resp B/P Pulse Ox O2 Delivery O2 Flow Rate FiO2 08/11/16 12:00 98.1 75 20 125/69 95 08/11/16 09:42 98 21 08/11/16 08:00 99.0 84 20 129/64 96 08/11/16 04:00 98.6 74 16 130/60 95 08/11/16 00:00 98.4 78 18 126/65 97 08/10/16 20:00 98.9 78 18 128/69 96 08/10/16 20:00 80 08/10/16 17:52 94 Nasal Cannula 2.00 08/10/16 17:51 94 21 I/O 08/10/16 08/10/16 08/10/16 08/11/16 08/11/16 08/11/16 07:00 15:00 23:00 07:00 15:00 23:00 Intake Total 487 ml 350 ml Output Total 150 ml Balance 337 ml 350 ml Intake Oral 240 ml 280 ml IV Total 247 ml 70 ml Output Urine Total 150 ml # Voids 3 2 # Bowel Movements 1 Result Diagram: 08/11/16 0356 08/10/16 1621 Imaging Last Impressions Lower Extremity Ultrasound 08/10/16 0000 Signed Impressions: Service Date/Time: Wednesday, August 10, 2016 02:46 - CONCLUSION: No DVT. Subcutaneous edema noted throughout both lower extremities.. Carson Prieto Jr., MD Objective Remarks GENERAL: Well-nourished, well-developed middle-aged female patient in [facility]. SKIN: Warm and dry. No rash. HEAD: Normocephalic. Atraumatic. EYES: Pupils equal and round. No scleral icterus. No injection or drainage. ENT: No nasal bleeding or discharge. Mucous membranes pink and moist. NECK: Supple. Trachea midline. CARDIOVASCULAR: Regular rate and rhythm. S1, S2 noted. No murmur appreciated. RESPIRATORY: No accessory muscle use. Clear to auscultation. Breath sounds equal bilaterally. GASTROINTESTINAL: Abdomen soft, non-tender, nondistended. Normoactive bowel sounds x4. MUSCULOSKELETAL: No obvious deformities. Extremities without clubbing, cyanosis , or edema. NEUROLOGICAL: Awake and alert. No obvious cranial nerve deficits. Motor grossly within normal limits. Normal speech. PSYCHIATRIC: Anxious mood; insight and judgment normal. Medications and IVs Current Medications Medications (Trade) Dose Ordered Sig/Kiarra Route Start Time Stop Time Status Last Admin (Zofran Inj) 4 mg Q6H PRN IVP 08/09/16 20:15 08/10/16 10:51 (Narcan Inj) 0.4 mg UNSCH PRN IV 08/09/16 20:15 (NS Flush) 2 ml UNSCH PRN IV FLUSH 08/09/16 20:15 (NS Flush) 2 ml BID IV FLUSH 08/09/16 21:00 08/10/16 20:39 (Ativan) 1 mg Q4H PRN PO 08/09/16 20:15 (Ativan Inj) 1 mg Q4H PRN IV PUSH 08/09/16 20:15 (Ativan) 2 mg Q2H PRN PO 08/09/16 20:15 (Ativan Inj) 2 mg Q2H PRN IV PUSH 08/09/16 20:15 (Ativan Inj) 2 mg Q1H PRN IV PUSH 08/09/16 20:15 (Ativan Inj) 2 mg Q15M PRN IV PUSH 08/09/16 20:15 Chlordiazepoxide 25 mg 25 mg TID PO 08/10/16 09:00 08/10/16 18:28 (Protonix Inj/NS Inj) 100 ml @ 10 mls/hr Q10H IV 08/10/16 03:30 08/11/16 02:49 Urinary Catheter: No Vascular Central Line Catheter: No A/P Problem List: (1) GI bleed ICD Code: K92.2 Status: Acute (2) Anemia due to acute blood loss ICD Code: D62 Status: Acute Assessment and Plan 46-year-old female with history of alcohol abuse, chronic anemia, pica syndrome , portal gastropathy, liver cirrhosis, COPD, history of GI bleed, history of alcohol withdrawal/DTs/seizures, presents with lower extremity swelling, shortness of breath, found to have severe anemia with hemoglobin 30.2 Severe symptomatic anemia: Hemoglobin 3.2 upon arrival. Status post 4 units PRBCs. Hemoglobin is stable at 8.1. Check stool Hemoccult. Given IV Protonix. Consulted GI, however the patient adamantly refusing any further workup including no EGD/colonoscopy/imaging. Started on ferrous sulfate twice a day. Lower extremity edema: Doppler ultrasound negative for DVT. Swelling has improved. Likely dependent edema, also with hypoalbuminemia. UTI: UA with positive leuks, given IV Rocephin 1, urine culture with Escherichia coli, resistant to IV Rocephin. Will start on Cipro 250 mg po bid. Hypocalcemia: Likely secondary to poor nutrition. Given IV calcium gluconate. Calcium 7.6. Liver cirrhosis with hyperammonemia: Patient AAO 4. Recommended alcohol cessation. Follow-up with GI. Alcohol Abuse: counseled on cessation. Started on librium, thiamine/folate/MV. CIWA protocol with Ativan prn. DVT prophylaxis: Holding chemical prophylaxis with anemia, holding mechanical prophylaxis with lower extremity edema Written by Ashley Ríos, acting as scribe for Dr. Miranda on 08/11/16 at 17:38. The documentation accurately reflects the work performed [id number] by me on at 1738 Discharge Planning 1800hrs: Patient informs Dr. Miranda she is leaving AMA. She does not want to stay in the hospital. Will discharge AGAINST MEDICAL ADVICE. Discharge patient AMA Condition on discharge: Improved Regular Diet as tolerated Ad Suzy activity Rx written: Cipro, Ferrous sulfate Follow-up with primary care physician and GI Ashley Ríos PA-C Aug 11, 2016 18:00 Terell Miranda MD Aug 11, 2016 18:26
[2016-08-11] MEDS ORDERED: VITA100T2 PO (18:28)
[2016-08-11] MEDS ORDERED: PANT40TA3 PO (18:28)
--- NOTE | 2016-08-11 18:30 | HHI.DS ---
Discharge Summary Admission Date Aug 09, 2016 at 19:28 Discharge Date: Aug 11, 2016 Admitting Diagnosis Symptomatic anemia (1) GI bleed ICD Code: K92.2 Diagnosis: Principal (2) Anemia due to acute blood loss ICD Code: D62 Diagnosis: Principal Procedures none Brief History - From Admission History from patient, ER physician notes, and review of medical records. Patient reported that she came to the hospital because her legs have been extremely painful and swelling. She reports that her right lower extremity is bigger than the left. He states that she has not been walking around at home at all because of her chronic shortness of breath which is worsening. She denies any chest pains or syncopal episodes. Denies any melena/hematemesis/hematochezia/hematuria. In the emergency room, patient's workup revealed hemoglobin of 3.2. She reports of chronic anemia. She states that she has had EGDs and colonoscopies done about a year ago. She states the doctors could not find the cause. However on review of medical records, she did have EGD and colonoscopy done here. Her EGD revealed liver cirrhosis with portal gastropathy and esophagitis. Colonoscopy was negative. Patient was started on blood transfusion in emergency room. She was receiving her second unit of blood at the time of my exam. To me, patient denies chest pain/dizziness/syncopal episodes. However she does state that she have pain mostly home bound because of severe pains in her lower extremities and shortness of breath and fatigued. CBC/BMP: 08/11/16 0356 08/10/16 1621 Significant Findings Laboratory Tests Test 08/09/16 08/09/16 08/09/16 08/10/16 14:57 15:45 17:10 16:21 Urine Turbidity HAZY (CLEAR) Urine Nitrite POS (NEG) Urine Leukocyte Esterase LARGE (NEG) Urine WBC 13 /hpf (0-5) Urine Bacteria RARE /hpf (NONE) Urine Mucus FEW /lpf (OCC) Prothrombin Time 12.7 SEC (9.8-11.6) Activated Partial 30.6 SEC Thromboplast Time (24.3-30.1) Sodium Level 133 MEQ/L (136-145) Carbon Dioxide Level 20.4 MEQ/L 20.8 MEQ/L (21.0-32.0) (21.0-32.0) Blood Urea Nitrogen 4 MG/DL (7-18) 5 MG/DL (7-18) Calcium Level 7.3 MG/DL 7.6 MG/DL (8.5-10.1) (8.5-10.1) Protein Corrected Calcium 7.3 MG/DL (8.5-10.1) Ammonia 42 MCMOL/L (11-32) Albumin 3.1 GM/DL (3.4-5.0) Ethyl Alcohol Level 298 MG/DL (0-5) White Blood Count 2.5 TH/MM3 (4.0-11.0) Red Blood Count 1.81 MIL/MM3 (4.00-5.30) Hemoglobin 3.2 GM/DL (11.6-15.3) Hematocrit 11.3 % (35.0-46.0) Mean Corpuscular Volume 62.6 FL (80.0-100.0) Mean Corpuscular Hemoglobin 17.5 PG (27.0-34.0) Mean Corpuscular Hemoglobin 28.0 % Concent (32.0-36.0) Red Cell Distribution Width 24.5 % (11.6-17.2) Platelet Count 58 TH/MM3 (150-450) Platelet Estimate LOW (NORMAL) Creatinine 0.40 MG/DL (0.50-1.00) Test 08/10/16 08/11/16 16:28 03:56 White Blood Count 2.8 TH/MM3 2.7 TH/MM3 (4.0-11.0) (4.0-11.0) Red Blood Count 3.32 MIL/MM3 3.35 MIL/MM3 (4.00-5.30) (4.00-5.30) Hemoglobin 8.2 GM/DL 8.1 GM/DL (11.6-15.3) (11.6-15.3) Hematocrit 25.0 % 24.6 % (35.0-46.0) (35.0-46.0) Mean Corpuscular Volume 75.4 FL 73.6 FL (80.0-100.0) (80.0-100.0) Mean Corpuscular Hemoglobin 24.6 PG 24.2 PG (27.0-34.0) (27.0-34.0) Red Cell Distribution Width 25.0 % 25.5 % (11.6-17.2) (11.6-17.2) Platelet Count 41 TH/MM3 30 TH/MM3 (150-450) (150-450) Monocytes (%) (Auto) 12.3 % 11.4 % (0.0-8.0) (0.0-8.0) Neutrophils # (Auto) 1.5 TH/MM3 1.5 TH/MM3 (1.8-7.7) (1.8-7.7) Lymphocytes # (Auto) 0.9 TH/MM3 0.8 TH/MM3 (1.0-4.8) (1.0-4.8) Platelet Estimate LOW (NORMAL) Ovalocytes 1+ (NORMAL) Imaging Last Impressions Lower Extremity Ultrasound 08/10/16 0000 Signed Impressions: Service Date/Time: Wednesday, August 10, 2016 02:46 - CONCLUSION: No DVT. Subcutaneous edema noted throughout both lower extremities.. Carson Prieto Jr., MD PE at Discharge GENERAL: Well-nourished, well-developed middle-aged female patient in [facility]. SKIN: Warm and dry. No rash. HEAD: Normocephalic. Atraumatic. EYES: Pupils equal and round. No scleral icterus. No injection or drainage. ENT: No nasal bleeding or discharge. Mucous membranes pink and moist. NECK: Supple. Trachea midline. CARDIOVASCULAR: Regular rate and rhythm. S1, S2 noted. No murmur appreciated. RESPIRATORY: No accessory muscle use. Clear to auscultation. Breath sounds equal bilaterally. GASTROINTESTINAL: Abdomen soft, non-tender, nondistended. Normoactive bowel sounds x4. MUSCULOSKELETAL: No obvious deformities. Extremities without clubbing, cyanosis , or edema. NEUROLOGICAL: Awake and alert. No obvious cranial nerve deficits. Motor grossly within normal limits. Normal speech. PSYCHIATRIC: Anxious mood; insight and judgment normal. Hospital Course 46-year-old female with history of alcohol abuse, chronic anemia, pica syndrome , portal gastropathy, liver cirrhosis, COPD, history of GI bleed, history of alcohol withdrawal/DTs/seizures, presents with lower extremity swelling, shortness of breath, found to have severe anemia with hemoglobin 30.2 Severe symptomatic anemia: Hemoglobin 3.2 upon arrival. Status post 4 units PRBCs. Hemoglobin is stable at 8.1. Check stool Hemoccult. Given IV Protonix. Consulted GI, however the patient adamantly refusing any further workup including no EGD/colonoscopy/imaging. Started on ferrous sulfate twice a day. Lower extremity edema: Doppler ultrasound negative for DVT. Swelling has improved. Likely dependent edema, also with hypoalbuminemia. UTI: UA with positive leuks, given IV Rocephin 1, urine culture with Escherichia coli, resistant to IV Rocephin. Will start on Cipro 250 mg po bid. Hypocalcemia: Likely secondary to poor nutrition. Given IV calcium gluconate. Calcium 7.6. Liver cirrhosis with hyperammonemia: Patient AAO 4. Recommended alcohol cessation. Follow-up with GI. Alcohol Abuse: counseled on cessation. Started on librium, thiamine/folate/MV. CIWA protocol with Ativan prn. DVT prophylaxis: Holding chemical prophylaxis with anemia, holding mechanical prophylaxis with lower extremity edema Written by Ashley Ríos, acting as scribe for Dr. Miranda on 08/11/16 at 17:38. The documentation accurately reflects the work performed [id number] by me on at 1738 Discharge Planning 1800hrs: Patient informs Dr. Miranda she is leaving AMA. She does not want to stay in the hospital. Will discharge AGAINST MEDICAL ADVICE. Discharge patient AMA Condition on discharge: Improved Regular Diet as tolerated Ad Suzy activity Rx written: Cipro, Ferrous sulfate and protonix Follow-up with primary care physician and GI Pt Condition on Discharge: Guarded Discharge Disposition: Discharge Home (AMA) Discharge Time: <= 30 minutes Discharge Instructions DIET: Follow Instructions for: As Tolerated, No Restrictions Activities you can perform: Regular-No Restrictions Follow up Referrals: Gastroenterology - 1 Week with Clif Workman MD PCP Follow-up - 1 Week New Medications: Ciprofloxacin (Ciprofloxacin) 250 Mg Tab 250 MG PO BID Infection #6 Ref 0 TAB Ferrous Sulfate (Ferrous Sulfate) 325 Mg Tab 325 MG PO BID Build Red Blood Cells #60 Ref 0 TAB Pantoprazole (Pantoprazole) 40 Mg Tab 40 MG PO DAILY Manage Heartburn #30 TAB Thiamine (Vitamin B-1) 100 Mg Tab 100 MG PO DAILY Alcohol Detox #30 TAB Terell Miranda MD Aug 11, 2016 18:30
[2016-08-11] MEDS ORDERED: CIPROFLOXACIN 250 MG TAB PO SCH (21:00)
[2016-08-12] MEDS ORDERED: PANTOPRAZOLE SOD 40 MG DELAYED RELEASE TAB PO SCH (09:00)
[2016-08-12] MEDS ORDERED: FOLIC ACID 1 MG TAB PO SCH (09:00)
[2016-08-12] MEDS ORDERED: MULTIVITAMINS/MINERALS THERAPEUTIC TAB PO SCH (09:00)
[2016-08-12] MEDS ORDERED: THIAMINE HCL 100 MG TAB PO SCH (09:00)
[2016-08-12] MEDS ORDERED: FERROUS SULFATE 325 MG (65 MG ELEMENTAL IRON) TAB PO SCH (12:00)
== END 2016-08-11 18:55 | disposition left against medical advice (07) | DRG 812 ==
LOC: NEPA 14:46 → NEDA 19:28 → N04A 21:54
PROVIDERS: ADMIT Internal Medicine; ATTEND Internal Medicine
PROC: 30233N1 Transfusion of Nonautologous Red Blood Cells into Peripheral Vein, Percutaneous Approach (ICD-10-PCS; principal; 2016-08-09)
DX: D62 Acute posthemorrhagic anemia (principal); D68.4 Acquired coagulation factor deficiency; K92.2 Gastrointestinal hemorrhage, unspecified; K76.6 Portal hypertension; N39.0 Urinary tract infection, site not specified; E88.09 Other disorders of plasma-protein metabolism, not elsewhere classified; E83.51 Hypocalcemia; K70.30 Alcoholic cirrhosis of liver without ascites; F10.10 Alcohol abuse, uncomplicated; D61.818 Other pancytopenia; J44.9 Chronic obstructive pulmonary disease, unspecified; F17.210 Nicotine dependence, cigarettes, uncomplicated; R60.0 Localized edema; B96.20 Unspecified Escherichia coli [E. coli] as the cause of diseases classified elsewhere; K31.89 Other diseases of stomach and duodenum
CPT/HCPCS: 36430; 80048; 80053; 80320; 81001; 82140; 85025; 85610; 85730; 86850; 86900; 86901; 86920; 87077; 87086; 87186; 93970; 96374; C9113; J0610; J0696; J2405; J7050; P9016

== ENCOUNTER 2017-09-06 14:11 | Emergency (ER) | payer OTHER ==
[~2017-09-06] VITALS: Ht 160 cm; Wt 57.0 kg
[2017-09-06 14:29] VITALS: BP 139/65; PULSE 91; RESP 20; TEMP 98.4; O2SAT 99
[2017-09-06 15:00] VITALS: RESP 16; O2SAT 98
--- NOTE | 2017-09-06 15:19 | PD ---
HPI Chief Complaint: Abnormal Results Time Seen by Provider: 15:02 Travel History International Travel<30 days: No Contact w/Intl Traveler<30days: No Traveled to known affect area: No History of Present Illness HPI This 47-year-old female was asked to come here by Dr. Sterling. He did some lab work yesterday and apparently her hemoglobin was 6. She has a history of anemia. In August 2016 she was admitted to the hospital with a hemoglobin of 3. She was diagnosed with cirrhosis in 2015. April 2015 she had endoscopy which showed portal gastropathy and esophagitis. She has been diagnosed with cirrhosis yet she continues to drink. She has not noted any dark stool. She has not been dizzy. She has not been short of breath. She has been eating well. She has been told to take iron in the past that she will not take it because it causes vomiting. She has noted some abdominal distention over the past few months and some left upper quadrant pain PFSH Past Medical History Anemia: Yes Arthritis: No Asthma: No Anxiety: Yes Depression: Yes Heart Rhythm Problems: No Cancer: No Cardiovascular Problems: No High Cholesterol: No Chemotherapy: No Chest Pain: No Congestive Heart Failure: No COPD: No Cerebrovascular Accident: Yes Diminished Hearing: No Endocrine: No Gastrointestinal Disorders: Yes GERD: No Genitourinary: No Hiatal Hernia: No Immune Disorder: No Implanted Vascular Access Dvce: No Kidney Stones: No Musculoskeletal: No Neurologic: Yes Psychiatric: Yes Reproductive: Yes (PELVIC MASS) Respiratory: No Migraines: No Radiation Therapy: No Renal Failure: No Seizures: Yes (hx of ) Sleep Apnea: No Thyroid Disease: No Tetanus Vaccination: > 5 Years Influenza Vaccination: No ?: Not Menopausal: Yes : 1 Para: 1 Miscarriage: 0 : 0 Past Surgical History Abdominal Surgery: Yes (BILAT INGUINAL HERNIA REPAIR) Appendectomy: Yes Cardiac Surgery: No Section: Yes (x1) Ear Surgery: No Eye Surgery: No Genitourinary Surgery: Yes (PELVIC MASS) Gynecologic Surgery: Yes (OOPHRECTOMY) Hysterectomy: Yes Oral Surgery: No Thoracic Surgery: No Tonsillectomy: Yes Other Surgery: Yes Social History Alcohol Use: Yes (8-10 BEERS DAILY,) Tobacco Use: Yes ( APPROX. 1 PPD ) Substance Use: No Allergies-Medications (Allergen,Severity, Reaction): Coded Allergies: No Known Allergies (Unverified Adverse Reaction, Unknown, 09/06/17) Reported Meds & Prescriptions Reported Meds & Active Scripts Active No Active Prescriptions or Reported Medications Review of Systems General / Constitutional: No: Fever, Chills Eyes: No: Diploplia, Blurred Vision HENT: No: Headaches, Vertigo Cardiovascular: No: Chest Pain or Discomfort Respiratory: No: Cough, Shortness of Breath Gastrointestinal: Positive: Abdominal Pain, No: Nausea, Vomiting, Diarrhea Genitourinary: No: Urgency, Frequency Musculoskeletal: No: Myalgias Skin: No Rash Neurologic: No: Weakness Hematologic/Lymphatic: No: Easy Bruising Physical Exam Narrative GENERAL: Well-developed female SKIN: Focused skin assessment warm/dry. HEAD: Atraumatic. Normocephalic. EYES: Pupils equal and round. Conjunctiva pale ENT: No nasal bleeding or discharge. Mucous membranes pink and moist. NECK: Trachea midline. No JVD. CARDIOVASCULAR: Regular rate and rhythm. No murmur appreciated. RESPIRATORY: No accessory muscle use. Clear to auscultation. Breath sounds equal bilaterally. GASTROINTESTINAL: Abdomen soft, there is some mild distention. There is some mild diffuse tenderness MUSCULOSKELETAL: No obvious deformities. No clubbing. No cyanosis. No edema. NEUROLOGICAL: Awake and alert. No obvious cranial nerve deficits. Motor grossly within normal limits. Normal speech. PSYCHIATRIC: Appropriate mood and affect; insight limited Data Data Last Documented VS Vital Signs Date Time Temp Pulse Resp B/P (MAP) Pulse Ox O2 Delivery O2 Flow Rate FiO2 09/06/17 14:53 88 16 99 Room Air 09/06/17 14:29 98.4 139/65 (89) [facility] Medical Decision Making Medical Screen Exam Complete: Yes Emergency Medical Condition: Yes Medical Record Reviewed: Yes Differential Diagnosis Differential includes anemia, cirrhosis, Narrative Course This lady is known to have cirrhosis yet she continues to drink Scripts No Active Prescriptions or Reported Meds Duran Anderson MD Sep 06, 2017 15:19
[2017-09-06] MEDS ORDERED: SODIUM CHLORIDE 0.9% FLUSH 10 ML FLUSH IVF PRN (15:30)
[2017-09-06 15:55] LABS: HEMATOCRIT 24.4 % (35.0-46.0); HEMOGLOBIN 7.1 GM/DL (11.6-15.3); MEAN CELL VOLUME 62.7 FL (80.0-100.0); MEAN CORPUSCULAR HEMOGLOBIN 18.2 PG (27.0-34.0); PLATELET COUNT 40 TH/MM3 (150-450); RED BLOOD COUNT 3.89 MIL/MM3 (4.00-5.30); RED CELL DISTRIBUTION WIDTH 22.3 % (11.6-17.2); WHITE BLOOD COUNT 2.3 TH/MM3 (4.0-11.0)
[2017-09-06 16:05] LABS: CHLORIDE 108 MEQ/L (98-107); SODIUM (NA) 140 MEQ/L (136-145)
[2017-09-06 16:07] LABS: INTERNATIONAL NORMALIZED RATIO 1.3 RATIO; MEAN CORPUSCULAR HGB CONC 29.1 % (32.0-36.0); PROTHROMBIN TIME - PATIENT 13.1 SEC (9.8-11.6)
[2017-09-06 16:08] LABS: CALCIUM 7.8 MG/DL (8.5-10.1)
[2017-09-06 16:09] LABS: ALBUMIN 3.1 GM/DL (3.4-5.0); BLOOD UREA NITROGEN 4 MG/DL (7-18); GLUCOSE,RANDOM 96 MG/DL (74-106); LIPASE 277 U/L (73-393)
[2017-09-06 16:11] LABS: ALT (GPT) 20 U/L (10-53); AST (GOT) 44 U/L (15-37)
[2017-09-06 16:12] LABS: CREATININE 0.48 MG/DL (0.50-1.00); GLOMERULAR FILTRATION RATE 139 ML/MIN (>89)
[2017-09-06 16:13] LABS: TOTAL BILIRUBIN ADULT 0.9 MG/DL (0.2-1.0); TOTAL PROTEIN 7.7 GM/DL (6.4-8.2)
[2017-09-06 16:14] LABS: ALKALINE PHOSPHATASE 121 U/L (45-117)
[2017-09-06 16:42] LABS: LYMPHOCYTES 64 % (9-44); MONOCYTES 4 % (0-8); NEUTROPHIL # MANUAL DIFF 0.7 TH/MM3 (1.8-7.7); POLYS (SEG NEUTROPHILS) 32 % (16-70); TARGET CELLS 1+ (NORMAL)
[2017-09-06 16:43] LABS: OVALOCYTES 1+ (NORMAL); TEARDROP RBCS 1+ (NORMAL)
--- NOTE | 2017-09-06 17:27 | PD ---
Data Data Last Documented VS Vital Signs Date Time Temp Pulse Resp B/P (MAP) Pulse Ox O2 Delivery O2 Flow Rate FiO2 09/06/17 15:00 16 98 Room Air 09/06/17 14:53 88 09/06/17 14:29 98.4 139/65 (89) Orders Orders Complete Blood Count With Diff (09/06/17 15:19) Comprehensive Metabolic Panel (09/06/17 15:19) Lipase (09/06/17 15:19) Ammonia (09/06/17 15:19) Prothrombin Time / Inr (Pt) (09/06/17 15:19) Act Partial Throm Time (Ptt) (09/06/17 15:19) Alcohol (Ethanol) (09/06/17 15:19) Type And Screen (09/06/17 15:19) Ecg Monitoring (09/06/17 15:19) Iv Access Insert/Monitor (09/06/17 15:19) Oximetry (09/06/17 15:19) Sodium Chloride 0.9% Flush (Ns Flush) (09/06/17 15:30) Labs Laboratory Tests Test 09/06/17 15:40 White Blood Count 2.3 TH/MM3 Red Blood Count 3.89 MIL/MM3 Hemoglobin 7.1 GM/DL Hematocrit 24.4 % Mean Corpuscular Volume 62.7 FL Mean Corpuscular Hemoglobin 18.2 PG Mean Corpuscular Hemoglobin Concent 29.1 % Red Cell Distribution Width 22.3 % Platelet Count 40 TH/MM3 Mean Platelet Volume 10.0 FL CBC Comment AUTO DIFF Differential Total Cells Counted 100 Neutrophils % (Manual) 32 % Lymphocytes % 64 % Monocytes % 4 % Neutrophils # (Manual) 0.7 TH/MM3 Differential Comment FINAL DIFF MANUAL Platelet Estimate LOW Platelet Morphology Comment ENLARGED Target Cells 1+ Tear Drop Cells 1+ Ovalocytes 1+ Prothrombin Time 13.1 SEC Prothromb Time International Ratio 1.3 RATIO Activated Partial Thromboplast Time 31.5 SEC Blood Urea Nitrogen 4 MG/DL Creatinine 0.48 MG/DL Random Glucose 96 MG/DL Total Protein 7.7 GM/DL Albumin 3.1 GM/DL Calcium Level 7.8 MG/DL Alkaline Phosphatase 121 U/L Aspartate Amino Transf (AST/SGOT) 44 U/L Alanine Aminotransferase (ALT/SGPT) 20 U/L Total Bilirubin 0.9 MG/DL Sodium Level 140 MEQ/L Potassium Level 3.6 MEQ/L Chloride Level 108 MEQ/L Carbon Dioxide Level 22.0 MEQ/L Anion Gap 10 MEQ/L Estimat Glomerular Filtration Rate 139 ML/MIN Ammonia 29 MCMOL/L Lipase 277 U/L Ethyl Alcohol Level 286 MG/DL MDM Supervised Visit with ANNETTE: No Narrative Course This case is checked out to me by Dr. Ashton at 4 PM. This patient is very challenging to manage. She is very opinionated and will allow certain things be done and refuses many other things. She is intoxicated but I suspect she is used to these alcohol levels as she does not look like she is intoxicated. She is not slurring or anything obvious. I reviewed the workup with her. She doesn't pancytopenia with a hemoglobin of 7.1 I suggested she come to the hospital get blood transfusion and she refuses that. I suggested we do a rectal exam to find out if she has GI bleeding but she refuses that as well I spoke with her and her at bedside at length. I answered their questions. He is okay with her decision to sign out AGAINST MEDICAL ADVICE. I advised her to return if she worsens or changes her mind. She is informed of the risks. Diagnosis Primary Impression: Pancytopenia Additional Impression: Alcohol intoxication Qualified Codes: F10.929 - Alcohol use, unspecified with intoxication, unspecified Scripts No Active Prescriptions or Reported Meds Disposition: 07 AGAINST MEDICAL ADVICE Howard Mcmullen MD Sep 06, 2017 17:27
== END 2017-09-06 17:50 | disposition left against medical advice (07) ==
LOC: PHED 14:11
DX: D61.818 Other pancytopenia (principal); F10.129 Alcohol abuse with intoxication, unspecified; D64.9 Anemia, unspecified; K74.60 Unspecified cirrhosis of liver; F32.9 Major depressive disorder, single episode, unspecified; F41.9 Anxiety disorder, unspecified; F17.210 Nicotine dependence, cigarettes, uncomplicated; Y90.8 Blood alcohol level of 240 mg/100 ml or more; Z86.73 Personal history of transient ischemic attack (TIA), and cerebral infarction without residual deficits
CPT/HCPCS: 80053; 80307; 82140; 83690; 85007; 85027; 85610; 85730; 99283

== ENCOUNTER 2018-02-03 13:35 | Observation (INO) ==
[2018-02-04] MEDS ORDERED: CEFTAZIDIME 2000 MG ONE (23:17)
[2018-02-05] MEDS ORDERED: LORazepam 1 MG Tablet PO PRN (02:26)
--- NOTE | 2018-02-05 07:43 | P.DS ---
DS: Providers Date of admission: 02/03/18 13:36 Primary care physician: Juanjo Sterling MD Attending physician on discharge: Imelda Gould Anticipated date of discharge: 02/05/18 DS: Diagnosis - Discharge Diagnosis (1) SBP (spontaneous bacterial peritonitis) Status: Acute (2) Liver cirrhosis Status: Acute (3) Ascites Status: Acute DS: Medications - Discharge Medications Prescriptions: ciprofloxacin HCl [Cipro] 500 mg PO BID 5 Days #20 tab rifaximin [Xifaxan] 400 mg PO Q8HR 30 Days tab spironolactone [Aldactone] 25 mg PO BID@0900,1800 #60 tab thiamine HCl (vitamin B1) 100 mg PO DAILY #30 tab DS: Summary Hospital Course: 47-year-old female with history of alcohol abuse, liver cirrhosis, tobacco use, presents with worsening abdominal distention, sent by Dr. Kraft. Liver cirrhosis with acute ascites, SBP: Presented with acute abdominal pain and distention, concern for SBP. S/p U/S guided abdominal paracentesis, removed 4L clear yellow fluids. Peritoneal fluid remarkable for WBC 155, cultures with no growth. GI consulted, concern patient was partially treated for SBP therefore may not show up on labs, recommended to continue on IV ceftazadime to cover for SBP. Started rifaximin. Lactulose held due to multiple episodes of diarrhea. Started on low dose spironolactone 25mg bid. Likely unable to tolerate lasix due to borderline hypotension. Discussed with Dr. Kraft, recommends discharge after 36-48hours of IV antibiotics, then d/c on oral antibiotics. Outpatient f/up. Patient doing well, tolerating oral intake, stable for discharge. Microcytic Anemia/Pancytopenia: Hgb 6.8, Plts 50K, WBCs 3.2K upon arrival. Likely secondary to chronic liver disease. The patient has previously refused EGD/colonoscopy or bleeding scan. Given 1 u pRBC transfusion. B12, folate, iron wnl. Repeat Hgb 8.4. Stable for discharge. Outpatient f/up with GI for further work up. Coagulopathy: INR 1.7, suspect secondary to liver disease. Avoid anticoagulation. Monitor for bleeding. Alcohol Abuse: patient continues to drink alcohol despite liver disease. Thoroughly counseled on cessation. CIWA protocol. Thiamine/folate/MV. - Time Spent with Patient Total time spent providing and/or coordinating discharge services: Greater than 30 minutes Exam Vital signs: Vital Signs 02/05/18 03:54 Temperature 98.6 F Pulse Rate 88 Respiratory Rate 16 Blood Pressure 100/56 L Pulse Oximetry 96 Intake & Output 02/04/18 02/05/18 02/05/18 18:59 06:59 18:59 Intake Total 760 / 760 Balance 760 / 760 Weight 63 kg Intake: Oral 760 / 760 Other: # Voids 2 Narrative: GENERAL: Well-nourished, well-developed middle-aged female patient in [facility]. SKIN: Warm and dry. No rash. HEENT: Normocephalic. Atraumatic. Pupils equal and round. Mucous membranes pink and moist. CARDIOVASCULAR: Regular rate and rhythm. No murmur appreciated. RESPIRATORY: No accessory muscle use. Clear to auscultation. Breath sounds equal bilaterally. GASTROINTESTINAL: Abdomen soft, non-tender, minimally distended. Normoactive bowel sounds x4. MUSCULOSKELETAL: No obvious deformities. Extremities without clubbing, cyanosis , or edema. NEUROLOGICAL: Awake and alert. No obvious cranial nerve deficits. Motor grossly within normal limits. Moving all extremities spontaneously. Normal speech. PSYCHIATRIC: Appropriate mood and affect; insight and judgment normal. Results Completed studies during hospitalization: 02/03 - Uncomplicated U/S guided paracentesis Labs on day of discharge: Labs from last 24 hours 02/04/18 02/04/18 02/04/18 00:42 00:42 00:42 WBC RBC Hgb Hct MCV MCH MCHC RDW Plt Count MPV Neut % (Auto) Lymph % (Auto) [place] % (Auto) Eos % (Auto) Baso % (Auto) Neut # (Auto) Lymph # (Auto) [place] # (Auto) Eos # (Auto) Baso # (Auto) CBC Comment Differential Comment Platelet Estimate Plt Morphology Comment Keratocytes ESR Haptoglobin PT INR APTT Sodium Potassium Chloride Carbon Dioxide Anion Gap BUN Creatinine Estimated GFR Random Glucose Lactic Acid Calcium Iron 209 H TIBC 234 L % Saturation 89.4 H Transferrin Ferritin 12 Total Bilirubin AST ALT Alkaline Phosphatase Ammonia Lactate Dehydrogenase C-Reactive Protein Total Protein Albumin Lipase Tumor Marker AFP CA 19-9 Antigen Vitamin B12 Folate Urine Color Urine Turbidity Urine pH Ur Specific [place] Urine Protein Urine Glucose (UA) Urine Ketones Urine Occult Blood Urine Nitrite Urine Bilirubin Urine Urobilinogen Ur Leukocyte Esterase Urine RBC Urine WBC Ur Squamous Epith Cells Urine Bacteria Hyaline Casts Urine Mucus Micro UA Comment Peritoneal WBC Peritoneal RBC Periton Neutrophils Periton Lymphocytes Peritoneal Monocytes Peritoneal Basophils [place] Mesothelial Per[place] Histiocytes Peritoneal Tot Protein Peritoneal Albumin Peritoneal LDH Peritoneal Glucose Ethyl Alcohol TAMMY Screen Pending Hepatitis A IgM Ab Hep Bs Antigen Hep Bs Antibody LESS THAN 3.1 Hep B Core IgM Ab Hep C IgG Ab 02/04/18 02/04/18 02/04/18 00:42 00:42 00:42 WBC 2.5 L RBC 3.65 L Hgb 8.4 L Hct 27.0 L MCV 74.0 L D MCH 23.0 L MCHC 31.0 L RDW 27.6 H Plt Count 40 L MPV 10.6 Neut % (Auto) Lymph % (Auto) [place] % (Auto) Eos % (Auto) Baso % (Auto) Neut # (Auto) Lymph # (Auto) [place] # (Auto) Eos # (Auto) Baso # (Auto) CBC Comment Differential Comment Platelet Estimate Plt Morphology Comment Keratocytes ESR Haptoglobin 43 PT INR APTT Sodium Potassium Chloride Carbon Dioxide Anion Gap BUN Creatinine Estimated GFR Random Glucose Lactic Acid Calcium Iron TIBC % Saturation Transferrin Ferritin Total Bilirubin AST ALT Alkaline Phosphatase Ammonia Lactate Dehydrogenase C-Reactive Protein Total Protein Albumin Lipase Tumor Marker AFP 4.3 CA 19-9 Antigen 50.9 H Vitamin B12 Folate Urine Color Urine Turbidity Urine pH Ur Specific [place] Urine Protein Urine Glucose (UA) Urine Ketones Urine Occult Blood Urine Nitrite Urine Bilirubin Urine Urobilinogen Ur Leukocyte Esterase Urine RBC Urine WBC Ur Squamous Epith Cells Urine Bacteria Hyaline Casts Urine Mucus Micro UA Comment Peritoneal WBC Peritoneal RBC Periton Neutrophils Per[place] Lymphocytes Peritoneal Monocytes Peritoneal Basophils [place] Mesothelial Per[place] Histiocytes Peritoneal Tot Protein Peritoneal Albumin Peritoneal LDH Peritoneal Glucose Ethyl Alcohol TAMMY Screen Hepatitis A IgM Ab NONREACTIVE Hep Bs Antigen NONREACTIVE Hep Bs Antibody Hep B Core IgM Ab NONREACTIVE Hep C IgG Ab NONREACTIVE 02/04/18 02/04/18 02/04/18 00:42 00:42 00:42 WBC RBC Hgb Hct MCV MCH MCHC RDW Plt Count MPV Neut % (Auto) Lymph % (Auto) [place] % (Auto) Eos % (Auto) Baso % (Auto) Neut # (Auto) Lymph # (Auto) [place] # (Auto) Eos # (Auto) Baso # (Auto) CBC Comment Differential Comment Platelet Estimate Plt Morphology Comment Keratocytes ESR Haptoglobin PT INR APTT 40.0 H Sodium Potassium Chloride Carbon Dioxide Anion Gap BUN Creatinine Estimated GFR Random Glucose Lactic Acid 1.6 Calcium Iron 210 H TIBC % Saturation Transferrin 167 L Ferritin 12 Total Bilirubin AST ALT Alkaline Phosphatase Ammonia Lactate Dehydrogenase 162 C-Reactive Protein Total Protein 6.2 L D Albumin Lipase Tumor Marker AFP CA 19-9 Antigen Vitamin B12 1775 H Folate 6.0 Urine Color Urine Turbidity Urine pH Ur Specific [place] Urine Protein Urine Glucose (UA) Urine Ketones Urine Occult Blood Urine Nitrite Urine Bilirubin Urine Urobilinogen Ur Leukocyte Esterase Urine RBC Urine WBC Ur Squamous Epith Cells Urine Bacteria Hyaline Casts Urine Mucus Micro UA Comment Peritoneal WBC Peritoneal RBC Per[place] Neutrophils [place] Lymphocytes Peritoneal Monocytes Peritoneal Basophils [place] Mesothelial [place] Histiocytes Peritoneal Tot Protein Peritoneal Albumin Peritoneal LDH Peritoneal Glucose Ethyl Alcohol TAMMY Screen Hepatitis A IgM Ab Hep Bs Antigen Hep Bs Antibody Hep B Core IgM Ab Hep C IgG Ab 02/03/18 02/03/18 02/03/18 14:43 14:43 11:55 WBC RBC Hgb Hct MCV MCH MCHC RDW Plt Count MPV Neut % (Auto) Lymph % (Auto) [place] % (Auto) Eos % (Auto) Baso % (Auto) Neut # (Auto) Lymph # (Auto) [place] # (Auto) Eos # (Auto) Baso # (Auto) CBC Comment Differential Comment Platelet Estimate Plt Morphology Comment Keratocytes ESR Haptoglobin PT INR APTT Sodium Potassium Chloride Carbon Dioxide Anion Gap BUN Creatinine Estimated GFR Random Glucose Lactic Acid Calcium Iron TIBC % Saturation Transferrin Ferritin Total Bilirubin AST ALT Alkaline Phosphatase Ammonia Lactate Dehydrogenase C-Reactive Protein Total Protein Albumin Lipase Tumor Marker AFP CA 19-9 Antigen Vitamin B12 Folate Urine Color Shonda Urine Turbidity HAZY H Urine pH 5.0 Ur Specific [place] 1.033 Urine Protein 100 H Urine Glucose (UA) 50 Urine Ketones NEG Urine Occult Blood NEG Urine Nitrite NEG Urine Bilirubin SMALL H Urine Urobilinogen 4.0 OR GREATER H Ur Leukocyte Esterase NEG Urine RBC LESS THAN 1 Urine WBC 5 Ur Squamous Epith Cells 4 Urine Bacteria RARE H Hyaline Casts 5 Urine Mucus MANY H Micro UA Comment CULT NOT INDICATED Peritoneal WBC 155 H Peritoneal RBC 587 H [place] Neutrophils 4 [place] Lymphocytes 48 Peritoneal Monocytes 27 Peritoneal Basophils 1 [place] Mesothelial 1 [place] Histiocytes 19 Peritoneal Tot Protein 1.4 Peritoneal Albumin 0.6 Peritoneal LDH 38 Peritoneal Glucose 98 Ethyl Alcohol TAMMY Screen Hepatitis A IgM Ab Hep Bs Antigen Hep Bs Antibody Hep B Core IgM Ab Hep C IgG Ab 02/03/18 02/03/18 02/03/18 11:25 11:23 11:23 WBC RBC Hgb Hct MCV MCH MCHC RDW Plt Count MPV Neut % (Auto) Lymph % (Auto) [place] % (Auto) Eos % (Auto) Baso % (Auto) Neut # (Auto) Lymph # (Auto) [place] # (Auto) Eos # (Auto) Baso # (Auto) CBC Comment Differential Comment Platelet Estimate Plt Morphology Comment Keratocytes ESR 32 H Haptoglobin PT INR APTT Sodium Potassium Chloride Carbon Dioxide Anion Gap BUN Creatinine Estimated GFR Random Glucose Lactic Acid Calcium Iron TIBC % Saturation Transferrin Ferritin Total Bilirubin AST ALT Alkaline Phosphatase Ammonia 48 H Lactate Dehydrogenase C-Reactive Protein 0.36 H Total Protein Albumin Lipase Tumor Marker AFP CA 19-9 Antigen Vitamin B12 Folate Urine Color Urine Turbidity Urine pH Ur Specific [place] Urine Protein Urine Glucose (UA) Urine Ketones Urine Occult Blood Urine Nitrite Urine Bilirubin Urine Urobilinogen Ur Leukocyte Esterase Urine RBC Urine WBC Ur Squamous Epith Cells Urine Bacteria Hyaline Casts Urine Mucus Micro UA Comment Peritoneal WBC Peritoneal RBC Periton Neutrophils Per[place] Lymphocytes Peritoneal Monocytes Peritoneal Basophils [place] Mesothelial [place] Histiocytes Peritoneal Tot Protein Peritoneal Albumin Peritoneal LDH Peritoneal Glucose Ethyl Alcohol TAMMY Screen Hepatitis A IgM Ab Hep Bs Antigen Hep Bs Antibody Hep B Core IgM Ab Hep C IgG Ab 02/03/18 02/03/18 02/03/18 11:23 11:23 11:23 WBC 3.2 L RBC 3.28 L Hgb 6.8 L* Hct 22.9 L MCV 69.8 L MCH 20.6 L MCHC 29.5 L RDW 26.4 H Plt Count 50 L MPV 9.9 Neut % (Auto) 42.5 Lymph % (Auto) 40.3 [place] % (Auto) 15.7 H Eos % (Auto) 0.6 Baso % (Auto) 0.9 Neut # (Auto) 1.4 L Lymph # (Auto) 1.3 [place] # (Auto) 0.5 Eos # (Auto) 0.0 Baso # (Auto) 0.0 CBC Comment AUTO DIFF Differential Comment AUTO DIFF CONFIRMED Platelet Estimate LOW L Plt Morphology Comment NORMAL Keratocytes OCC H ESR Haptoglobin PT 17.1 H INR 1.7 APTT 36.0 H Sodium 133 L Potassium 3.2 L Chloride 100 Carbon Dioxide 19.2 L Anion Gap 14 BUN 4 L Creatinine 0.64 Estimated GFR 99 Random Glucose 114 H Lactic Acid Calcium 7.8 L Iron TIBC % Saturation Transferrin Ferritin Total Bilirubin 3.2 H AST 63 H ALT 21 Alkaline Phosphatase 96 Ammonia Lactate Dehydrogenase C-Reactive Protein Total Protein 6.8 Albumin 2.5 L Lipase 176 Tumor Marker AFP CA 19-9 Antigen Vitamin B12 Folate Urine Color Urine Turbidity Urine pH Ur Specific [place] Urine Protein Urine Glucose (UA) Urine Ketones Urine Occult Blood Urine Nitrite Urine Bilirubin Urine Urobilinogen Ur Leukocyte Esterase Urine RBC Urine WBC Ur Squamous Epith Cells Urine Bacteria Hyaline Casts Urine Mucus Micro UA Comment Peritoneal WBC Peritoneal RBC Per[place] Neutrophils [place] Lymphocytes Peritoneal Monocytes Peritoneal Basophils [place] Mesothelial [place] Histiocytes Peritoneal Tot Protein Peritoneal Albumin Peritoneal LDH Peritoneal Glucose Ethyl Alcohol 120 H TAMMY Screen Hepatitis A IgM Ab Hep Bs Antigen Hep Bs Antibody Hep B Core IgM Ab Hep C IgG Ab Discharge Plan - Discharge Disposition Patient Disposition: Discharge Home - Discharge Condition Condition: Stable - Discharge Order Discharge Orders: Discharge Order (Routine); Ordered 02/05/18 Ordered By: Ashley Ríos - Discharge Details Anticipated Discharge Date/Time: 02/05/18 09:00 Discharge Comment: Ok to discharge after morning IV antibiotics. - Physicians Team Primary Care Provider: Juanjo Sterling Attending Provider: Imelda Gould Other Providers: Omkar Kraft MD - Rxs /Orders / Referrals /Forms Prescriptions: New rifaximin [Xifaxan] 200 mg Tablet 400 mg PO Q8HR 30 Days RF: 0 spironolactone [Aldactone] 25 mg Tablet 25 mg PO BID@0900,1800 Qty: 60 RF: 0 thiamine HCl (vitamin B1) 100 mg Tablet 100 mg PO DAILY Qty: 30 RF: 0 Changed ciprofloxacin HCl [Cipro] 250 mg Tablet 500 mg PO BID 5 Days Qty: 20 Changed from: 750 mg oral twice daily Discontinued lactulose 19 gm Referrals: Juanjo Sterling MD [Primary Care Provider] - See Instructions Primary Care Yarelis Laura [Family Provider] - See Instructions Omkar Kraft MD [Physician] - See Instructions - Discharge Instructions Print Language: Frisian - Post Discharge Care Plan Care Plan Goals: Your Health Problems: Goals to Promote Your Health: * To prevent worsening of your condition * To maintain your health at the optimal level Directions to Meet Your Goals: * Take your medications as prescribed * Follow your dietary instruction * Follow activity as directed * Keep your appointments as scheduled * Take your immunizations and boosters as scheduled * If your symptoms worsen call your PCP * If no PCP go to Urgent Care or Emergency Room Smoking is dangerous to your health. Avoid second hand smoke. You may reach the 24-hour crisis hotline for domestic abuse at .
[2018-02-05] MEDS ORDERED: Folic Acid 1 MG Tablet PO SCH (09:00)
[2018-02-05] MEDS ORDERED: Multivitamin/Minerals Therapeutic Tablet PO SCH (09:00)
[2018-02-05] MEDS ORDERED: Spironolactone 25 MG Tablet PO SCH (09:00)
== END 2018-02-05 15:49 | disposition home or self-care (01) ==
LOC: UNDODISOB → NEPGCP 13:35
PROVIDERS: ADMIT Hospitalist; ATTEND Hospitalist